=== PATIENT | female | born 1950 | race African-American/Black ===

== ENCOUNTER 2017-02-06 18:51 | Emergency (ER) | payer BC, OTHER ==
[~2017-02-06] VITALS: Ht 160 cm; Wt 68.0 kg
--- NOTE | ~2017-02-06 | EKG ---
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
[2017-02-06] MEDS ORDERED: NAPROSYN500 MG PO (19:42)
[2017-02-06] MEDS ORDERED: LISINOPRIL-HCT1 EAC1 PO (19:43)
[2017-02-06] MEDS ORDERED: TOPROL XL25 MG PO ×2 (19:44→21:55)
[2017-02-06] MEDS ORDERED: METFORMIN HCL500 MG PO (19:44)
[2017-02-06] MEDS ORDERED: VITAMIN D 5050000 I1 PO (19:47)
[2017-02-06] MEDS ORDERED: ATIVAN0.5 MG PO (19:47)
[2017-02-06] MEDS ORDERED: PROTONIX40 M1 PO (19:48)
[2017-02-06] MEDS ORDERED: ADVAIR 250-501 EACH INH (19:49)
[2017-02-06 20:42] LABS: ABSOLUTE NEUTROPHILS 7.5 thou/uL (1.4-8.2); BASOPHILS 0.3 % (0.0-2.0); EOSINOPHILS 0.6 % (0.0-3.0); HEMATOCRIT 40.1 % (37.0-47.0); MCH 30.4 pg (26.0-34.0); MCV 86.8 fL (80.0-100.0); MONOCYTES 4.8 % (1.0-8.0); PLATELET COUNT 306 thou/uL (150-400); POLYS 79.3 % (36.0-66.0); RBC 4.62 mil/uL (4.20-5.00); RDW 11.9 % (10.5-14.5); WBC 9.5 thou/uL (4.0-11.0)
[2017-02-06 20:44] LABS: MANUAL DIFF NO
[2017-02-06 20:48] LABS: CALCIUM 10.3 mg/dL (8.5-10.1); CREATININE 0.8 mg/dL (0.6-1.0); POTASSIUM 4.3 mmol/L (3.5-5.1)
[2017-02-06 22:11] VITALS: BP 126/49
== END 2017-02-06 22:15 | disposition home or self-care (01) ==
LOC: ER 18:51
PROVIDERS: Emergency Medicine
DX: E05.90 Thyrotoxicosis, unspecified without thyrotoxic crisis or storm (principal); J45.909 Unspecified asthma, uncomplicated; I10 Essential (primary) hypertension; E11.9 Type 2 diabetes mellitus without complications; F17.200 Nicotine dependence, unspecified, uncomplicated